=== PATIENT | female | born 1970 | race Caucasian/White ===

== ENCOUNTER 2018-01-14 09:31 | Emergency (ER) | payer MEDICAID ==
[~2018-01-14] VITALS: Ht 165.1 cm; Wt 63.5 kg
[2018-01-14 09:48] VITALS: BP 127/87
== END 2018-01-14 10:33 | disposition home or self-care (01) ==
LOC: ER 09:34
DX: I10 Essential (primary) hypertension (principal); F17.210 Nicotine dependence, cigarettes, uncomplicated; Z76.0 Encounter for issue of repeat prescription

== ENCOUNTER 2018-12-19 17:16 | Emergency (ER) | payer MEDICAID ==
[~2018-12-19] VITALS: Ht 165.1 cm; Wt 63.5 kg
[2018-12-19 17:20] VITALS: BP 149/101
[2018-12-19] MEDS ORDERED: IBUPROFEN 800 MG TAB PO ONE (19:00)
== END 2018-12-19 19:04 | disposition home or self-care (01) ==
LOC: ER 17:23
DX: S93.401A Sprain of unspecified ligament of right ankle, initial encounter (principal); I10 Essential (primary) hypertension; F17.210 Nicotine dependence, cigarettes, uncomplicated; F41.9 Anxiety disorder, unspecified; X50.1XXA Overexertion from prolonged static or awkward postures, initial encounter; Y93.89 Activity, other specified; Y92.89 Other specified places as the place of occurrence of the external cause; Y99.8 Other external cause status
CPT/HCPCS: 29515; 73610

== ENCOUNTER 2024-03-23 14:16 | Inpatient (IN) | payer MEDICAID ==
[~2024-03-23] VITALS: Ht 162.6 cm; Wt 71.0 kg
[~2024-03-23 14:16] MED LIST: CIPR-173 PO
[2024-03-23 15:22] LABS: Basophils # (auto) 0.1 10 ^3/uL (0-0.2); Eosinophils # (auto) 0.1 10 ^3/uL (0-0.8); Mean Corpuscular Hgb Conc. 34.8 g/dL (32.0-36.0); Monocytes # (auto) 0.9 10 ^3/uL (0-1.3); Nucleated Red Blood Cells % 0.1 %
[2024-03-23 15:24] LABS: Basophils % (auto) 0.6 % (0.0-2.0); Eosinophils % (auto) 0.7 % (0.0-7.0); Hematocrit 49.4 % (36.0-46.0); Hemoglobin 17.2 g/dL (12.2-16.2); Lymphocytes # (auto) 2.5 10 ^3/uL (0.4-5.4); Lymphocytes % (auto) 25.9 % (10.0-50.0); Mean Corpuscular Hemoglobin 36.5 pg (28.0-32.0); Mean Corpuscular Volume 105.1 fL (80.0-100.0); Monocytes % (auto) 9.1 % (0.0-12.0); Neutrophils # (auto) 6.1 10 ^3/uL (1.6-8.6); Neutrophils % (auto) 63.7 % (37.0-80.0); Platelet Count (auto) 220 10^3/uL (140-450); Red Blood Cells 4.69 10^6/uL (4.0-5.20); White Blood Cell 9.5 10^3/uL (4.4-10.8)
[2024-03-23 15:38] LABS: Alanine Aminotransferase 40 U/L (7-40); Albumin 4.9 g/dL (3.2-4.8); Alkaline Phosphatase 192 U/L (46-116); Anion Gap 11 (5-15); Aspartate Aminotransferase 49 U/L (13-40); BUN/Creatinine Ratio 10.6 (10.0-20.0); Blood Urea Nitrogen 15 mg/dL (9-23); Calcium 10.1 mg/dL (8.7-10.4); Carbon Dioxide 27 mmol/L (20-30); Chloride 101 mmol/L (98-107); Glucose 100 mg/dL (74-106); Lipase 59 U/L (12-53); Potassium 3.1 mmol/L (3.5-5.1); Sodium 139 mmol/L (136-145)
[2024-03-23 15:39] LABS: Bilirubin, Total 2.2 mg/dL (0.2-1.0); Total Protein 7.8 g/dL (5.7-8.2)
[2024-03-23] MEDS: SODIUM CHLORIDE 0.9% 500 ML IVB ONE (15:43)
[2024-03-23] MEDS: PANTOPRAZOLE 40 MG/10 ML VIAL INJ IV ONE (15:43)
[2024-03-23] MEDS: ONDANSETRON HCL 4 MG/2 ML VIAL IV ONE (15:43)
[2024-03-23] MEDS: MORPHINE SULFATE 4 MG/ML SYR/VIAL IV ONE (15:44)
[2024-03-23 15:54] VITALS: PULSE 160; RESP 15; O2SAT 87
[2024-03-23] MEDS: ADENOSINE 6 MG/2 ML INJ IV ONE ×3 (16:25→16:47)
[2024-03-23] MEDS: IOHEXOL 350 MG/ML 100ML IJ ONE (17:00)
[2024-03-23] MEDS: POTASSIUM CHL 20MEQ/100ML 100 ML IV ONE (17:29)
[2024-03-23] MEDS ORDERED: MORPHINE SULFATE INJ 2 MG/ml SYRG IV PRN (18:15)
[2024-03-23] MEDS ORDERED: hydrALAZINE HCL 20 MG/ML VL IV PRN (18:15)
[2024-03-23] MEDS ORDERED: NITROGLYCERIN 0.4 MG SL TAB SL PRN ×2 (18:15)
[2024-03-23 18:24] LABS: COVID19 ANTIGEN SOFIA FIA NEGATIVE (NEGATIVE)
[2024-03-23] MEDS: HYDROcodone-ACET 5/325MG TAB PO PRN (19:06)
[2024-03-23 20:48] VITALS: PULSE 102; RESP 16; O2SAT 93
[2024-03-23 21:41] LABS: Urine Bacteria None Seen /hpf (None Seen)
[2024-03-23 21:56] LABS: Urine Blood Negative /uL (Negative); Urine Clarity Clear (Clear); Urine Color Yellow (Yellow); Urine Mucus FEW (None Seen); Urine Protein, UAD 1+ (Negative); Urine Urobilinogen 4 mg/dL (Negative); Urine WBC 9 /hpf (0 - 5); Urine pH 6.5 (5.0-9.0)
[2024-03-23 21:57] LABS: Urine Specific Gravity > 1.050 (1.001-1.035)
[2024-03-23 22:02] LABS: Amphetamine Screen, Urine Neg (NEGATIVE); Barbiturate Scree,Urine Neg (NEGATIVE); Benzodiazephine Screen, Urine Neg (NEGATIVE); Cocaine Screen, Urine Neg (NEGATIVE)
[2024-03-23 22:03] LABS: Cannabinoid Screen, Urine Pos (NEGATIVE); Opiate Scree,Urine Pos (NEGATIVE); Phencyclidine Screen, Urine Neg (NEGATIVE)
[2024-03-23 23:30] VITALS: PULSE 98; RESP 16; O2SAT 91
[2024-03-23 23:41] VITALS: BP 130/89; PULSE 106; RESP 18; TEMP 97.4; O2SAT 91
[2024-03-23] MEDS: ONDANSETRON HCL 4 MG/2 ML VIAL IV PRN (23:47)
[2024-03-24] VITALS (7 sets, daily range): BP systolic 104–132; BP diastolic 78–98; PULSE 72–99; RESP 16–21; TEMP 97.4–97.9; O2SAT 89–96
[2024-03-24] MEDS ORDERED: NIFE1TAB31 PO (00:36)
[2024-03-24] MEDS ORDERED: FURO20TA4 PO (00:36)
[2024-03-24] MEDS: MORPHINE SULFATE INJ 2 MG/ml SYRG IV PRN (06:30)
[2024-03-24] MEDS: PANTOPRAZOLE 40 MG/10 ML VIAL INJ IV SCH (10:19)
[2024-03-24] MEDS: FUROSEMIDE 20 MG TAB PO SCH (10:20)
[2024-03-24] MEDS: ENOXAPARIN SOD 40 MG/0.4 ML SYRINGE SC SCH (10:20)
[2024-03-24] MEDS: POTASSIUM CHL 20 Meq TABLET PO ONE (10:21)
[2024-03-24] MEDS: METOPROLOL TARTRATE 25 MG TAB PO SCH (10:21)
[2024-03-24] MEDS: NIFEdipine ER 30 MG TAB PO SCH (10:22)
[2024-03-24 12:52] LABS: Base Excess -4.8 mmol/L (-2.0-3.0)
[2024-03-24 14:19] LABS: Rapid Influenza A Negative (Negative); Rapid Influenza B Negative (Negative)
[2024-03-24 15:45] LABS: COVID19 ANTIGEN SOFIA FIA NEGATIVE (NEGATIVE)
[2024-03-24] MEDS: ACETAMINOPHEN 325 MG TAB PO PRN (18:04)
[2024-03-24] MEDS ORDERED: ATROPINE SULF 1 MG/10ml SYR IV ONE (22:17)
[2024-03-24] MEDS ORDERED: DEXTROSE 50% SYRINGE 50 ML IV ONE (22:33)
[2024-03-26 08:55] LABS: Hepatitis B Surface Antigen Negative (Negative)
[2024-03-26 09:16] LABS: Hepatitis C Antibody Negative (Negative)
== END 2024-03-24 22:18 | DRG 812 ==
LOC: ER 14:16 → TELE 18:12 → TELE-CENTR 23:30
PROVIDERS: ADMIT Nurse Practitioner; ATTEND Nurse Practitioner
PROC: 5A12012 Performance of Cardiac Output, Single, Manual (ICD-10-PCS; principal; 2024-03-24)
PROC: 5A2204Z Restoration of Cardiac Rhythm, Single (ICD-10-PCS; 2024-03-24)
PROC: 0BH17EZ Insertion of Endotracheal Airway into Trachea, Via Natural or Artificial Opening (ICD-10-PCS; 2024-03-24)
DX: T40.601A Poisoning by unspecified narcotics, accidental (unintentional), initial encounter (principal); I49.01 Ventricular fibrillation; I27.20 Pulmonary hypertension, unspecified; I47.10 Supraventricular tachycardia, unspecified; K59.00 Constipation, unspecified; K76.0 Fatty (change of) liver, not elsewhere classified; E87.6 Hypokalemia; F11.10 Opioid abuse, uncomplicated; F10.10 Alcohol abuse, uncomplicated; F17.210 Nicotine dependence, cigarettes, uncomplicated; I10 Essential (primary) hypertension; K76.9 Liver disease, unspecified; Z20.822 Contact with and (suspected) exposure to COVID-19; Y90.9 Presence of alcohol in blood, level not specified; R79.89 Other specified abnormal findings of blood chemistry; Z88.1 Allergy status to other antibiotic agents; Z79.899 Other long term (current) drug therapy; Z85.820 Personal history of malignant melanoma of skin; Z90.49 Acquired absence of other specified parts of digestive tract; Z91.148 Patient's other noncompliance with medication regimen for other reason; Z80.8 Family history of malignant neoplasm of other organs or systems; Z91.199 Patient's noncompliance with other medical treatment and regimen due to unspecified reason
CPT/HCPCS: 31500; 36415; 36600; 71045; 71275; 74177; 76775; 80053; 80307; 81001; 82805; 83690; 85025; 85379; 86803; 87340; 87426; 87804; 92950; 92960; 93005; 93306; G0378; J0153; J2405; J2470; J3480